=== PATIENT | male | born 1980 | race African-American/Black ===

== ENCOUNTER 2018-12-20 09:15 | Inpatient (IN) | payer MEDICAID, OTHER ==
[~2018-12-20] VITALS: Ht 190.5 cm; Wt 78.0 kg
[2018-12-20] MEDS ORDERED: KETOROLAC 30MG/ML VIAL IV ONE (09:45)
[2018-12-20] MEDS ORDERED: SODIUM CHLORIDE 0.9% 1000ML BAG (SEPSIS BOLUS) IV ONE (09:45)
[2018-12-20] MEDS ORDERED: PIPERACILLIN/TAZ 3.375G PREMIX 50 ML IV ONE (10:00)
[2018-12-20] MEDS ORDERED: VANCOMYCIN 1 G PREMIX 200 ML IV ONE (10:00)
[2018-12-20 10:15] LABS: HEMATOCRIT. 44.2 % (42.0-52.0); HEMOGLOBIN. 14.8 g/dL (14.0-18.0); MEAN CORPUSCULAR VOLUME 89.6 fL (80.0-94.0); MEAN PLATELET VOLUME 8.3 fl (7.4-10.4); PLATELET 303 x1000/uL (130-400); RED BLOOD CELL COUNT 4.94 mill/uL (4.7-6.1); RED CELL DISTRIBUTION WIDTH 14.3 % (11.6-14.6)
[2018-12-20 10:22] LABS: PROTHROMBIN TIME 10.7 sec (9.6-11.0)
[2018-12-20 10:34] LABS: CHLORIDE 99 mEq/L (98-107)
[2018-12-20 10:47] LABS: PLATELET ESTIMATE NORMAL
[2018-12-20] MEDS ORDERED: ACETAMINOPHEN 325MG TABLET PO ONE (13:00)
[2018-12-20] MEDS ORDERED: MORPHINE SULFATE 4 MG/ML CPJ (NOT FOR IM USE) IV ONE (13:00)
[2018-12-20 13:23] LABS: CLARITY URINE CLOUDY (CLEAR); COLOR URINE DARK YELLOW (YELLOW); KETONES URINE TRACE (NEGATIVE); LEUKOCYTE ESTERASE URINE 1+ (NEGATIVE); NITRITE URINE NEGATIVE (NEGATIVE); OCCULT BLOOD URINE 2+ (NEGATIVE); PROTEIN URINE 1+ (NEGATIVE); SPECIFIC GRAVITY URINE 1.018 (1.005-1.030)
[2018-12-20] MEDS ORDERED: CLONIDINE 0.1MG TABLET PO PRN (13:30)
[2018-12-20] MEDS ORDERED: PIPERACILLIN/TAZ 3.375G PREMIX 50 ML IV SCH (13:30)
[2018-12-20] MEDS ORDERED: IPRATROPIUM/ALBUTEROL 0.5-3(2.5)MG/3ML NEB NEB PRN (13:30)
[2018-12-20] MEDS ORDERED: MAGNESIUM/ALUMINUM HYDROXIDE/SIMETHICONE 30ML UDC PO PRN (13:30)
[2018-12-20] MEDS ORDERED: ACETAMINOPHEN 325MG TABLET PO PRN ×2 (13:30→18:30)
[2018-12-20] MEDS ORDERED: ONDANSETRON HCL 4MG/2ML INJ IV PRN ×2 (13:30→18:30)
[2018-12-20] MEDS ORDERED: NITROGLYCERIN 0.4MG TABLET SL SL PRN (13:30)
[2018-12-20] MEDS ORDERED: KETOROLAC 15MG/ML VIAL IV PRN (13:30)
[2018-12-20] MEDS ORDERED: TRAMADOL 50MG TABLET PO PRN (13:30)
[2018-12-20 14:31] LABS: *AMPHETAMINES SCREEN URINE PRESUMTIVE POSITIVE (NEGATIVE); *BARBITURATES SCREEN URINE NEGATIVE (NEGATIVE); *BENZODIAZEPINES SCREEN URINE NEGATIVE (NEGATIVE); *COCAINE SCREEN URINE NEGATIVE (NEGATIVE); CANNABINOID URINE SCREEN PRESUMTIVE POSITIVE (NEGATIVE); METHADONE URINE SCREEN NEGATIVE (NEGATIVE); OPIATES URINE SCREEN NEGATIVE (NEGATIVE); PHENCYCLIDINE URINE SCREEN NEGATIVE (NEGATIVE)
[2018-12-20] MEDS ORDERED: ALBUL MT (15:52)
[2018-12-20 15:54] VITALS: BP 95/61
[2018-12-20 16:00] VITALS: BP 95/61
[2018-12-20] MEDS ORDERED: SODIUM CHLORIDE 0.9% 1,000 ML IV SCH (16:30)
[2018-12-20] MEDS: ENOXAPARIN 40MG/0.4ML SYR SUBCUT SCH (17:00)
[2018-12-20] MEDS ORDERED: BUPIVACAINE HCL 0.5% (5MG/ML) 50ML ONE (17:45)
[2018-12-20] MEDS ORDERED: BACITRACIN 50,000 UNITS/VIAL ONE (17:45)
[2018-12-20] MEDS: PIPERACILLIN/TAZOBACTAM 2.25 G in DEXTROSE 5% WATER 50 ML IV SCH (18:00)
[2018-12-20] MEDS ORDERED: FENTANYL CITRATE/PF 50MCG/ML 2ML VIAL ONE (18:12)
[2018-12-20] MEDS ORDERED: MIDAZOLAM HCL 2 MG/2 ML VIAL ONE (18:12)
[2018-12-20] MEDS ORDERED: ROCURONIUM BROMIDE 10MG/ML VIAL 5ML IV ONE (18:12)
[2018-12-20] MEDS ORDERED: ETOMIDATE 2MG/ML 10ML VIAL IV ONE (18:13)
[2018-12-20] MEDS ORDERED: LIDOCAINE HCL 1% 20ML VIAL (Pyxis) INJ ONE (18:13)
[2018-12-20] MEDS ORDERED: SODIUM CHLORIDE 0.9% 10ML VIAL ONE ×2 (18:13→18:24)
[2018-12-20] MEDS ORDERED: EPHEDRINE SULFATE 50MG/ML VIAL ONE (18:24)
[2018-12-20] MEDS ORDERED: PHENYLEPHRINE HCL 10 MG/ML 1ML (IV VIAL) IV ONE (18:26)
[2018-12-20] MEDS ORDERED: MORPHINE SULFATE 4 MG/ML CPJ (NOT FOR IM USE) IV PRN (18:30)
[2018-12-20] MEDS ORDERED: DEXAMETHASONE 4MG/ML 1ML VIAL ONE (19:05)
[2018-12-20] MEDS ORDERED: ONDANSETRON HCL 4MG/2ML INJ ONE (19:17)
[2018-12-20] MEDS ORDERED: NEOSTIGMINE METHYLSULFATE 1MG/ML 10 ML VIAL ONE (19:22)
[2018-12-20] MEDS ORDERED: GLYCOPYRROLATE 0.2 MG/ML 2ML VIAL ONE (19:23)
[2018-12-20] MEDS ORDERED: FLUMAZENIL 0.1 MG/ML 5ML VIAL IV ONE (19:29)
[2018-12-20] MEDS: HYDROMORPHONE HCL/PF 2MG/ML CPJ IV PRN ×2 (20:30→20:44)
[2018-12-20 21:15] VITALS: BP 87/56
[2018-12-20] MEDS: DEXT 5%/0.45% NACL KCL 20MEQ/L 1,000 ML IV SCH (21:54)
[2018-12-20] MEDS: VANCOMYCIN 1 G PREMIX 200 ML IV SCH (21:55)
[2018-12-20] MEDS: SODIUM CHLORIDE 0.9% INJ 3ML FLUSH IVF SCH (21:55)
[2018-12-20] MEDS: ASCORBIC ACID 500 MG TABLET PO SCH (21:55)
[2018-12-20 23:52] VITALS: BP 86/47
[2018-12-21] MEDS: PIPERACILLIN/TAZOBACTAM 2.25 G in DEXTROSE 5% WATER 50 ML IV SCH ×4 (00:27→17:44)
[2018-12-21 04:00] VITALS: BP 90/56
[2018-12-21] MEDS: DEXT 5%/0.45% NACL KCL 20MEQ/L 1,000 ML IV SCH ×2 (05:46→17:45)
[2018-12-21] MEDS: SODIUM CHLORIDE 0.9% INJ 3ML FLUSH IVF SCH ×3 (05:47→20:26)
[2018-12-21 08:00] VITALS: BP 93/49
[2018-12-21] MEDS: ASCORBIC ACID 500 MG TABLET PO SCH ×2 (08:57→20:26)
[2018-12-21] MEDS: VANCOMYCIN 1 G PREMIX 200 ML IV SCH ×2 (08:57→20:26)
[2018-12-21] MEDS: ZINC SULFATE 220 MG ( 50 ) CAPSULE PO SCH (08:58)
[2018-12-21 12:00] VITALS: BP 106/67
[2018-12-21 16:00] VITALS: BP 116/69
[2018-12-21] MEDS: ENOXAPARIN 40MG/0.4ML SYR SUBCUT SCH (17:44)
[2018-12-21] MEDS: DOCUSATE SODIUM 100MG CAPSULE PO PRN (18:00)
[2018-12-21] MEDS: HYDROCODONE/ACETAMINOPHEN 5/325MG TABLET PO PRN (18:00)
[2018-12-21 20:50] VITALS: BP 104/72
[2018-12-22] VITALS: BP 110/71
[2018-12-22] MEDS: PIPERACILLIN/TAZOBACTAM 2.25 G in DEXTROSE 5% WATER 50 ML IV SCH ×4 (01:00→17:02)
[2018-12-22 04:00] VITALS: BP 99/63
[2018-12-22] MEDS: HYDROCODONE/ACETAMINOPHEN 5/325MG TABLET PO PRN ×2 (05:09→17:04)
[2018-12-22] MEDS: SODIUM CHLORIDE 0.9% INJ 3ML FLUSH IVF SCH ×3 (05:15→21:33)
[2018-12-22] MEDS: DEXT 5%/0.45% NACL KCL 20MEQ/L 1,000 ML IV SCH ×3 (05:51→21:32)
[2018-12-22 07:20] LABS: HEMATOCRIT. 32.3 % (42.0-52.0); HEMOGLOBIN. 10.9 g/dL (14.0-18.0); MEAN CORPUSCULAR HEMOGLOBIN 29.6 pg (28.0-32.0); MEAN CORPUSCULAR VOLUME 87.7 fL (80.0-94.0); MEAN PLATELET VOLUME 8.5 fl (7.4-10.4); PLATELET 265 x1000/uL (130-400); RED BLOOD CELL COUNT 3.69 mill/uL (4.7-6.1); RED CELL DISTRIBUTION WIDTH 14.5 % (11.6-14.6)
[2018-12-22 07:51] LABS: CHLORIDE 110 mEq/L (98-107)
[2018-12-22 08:00] VITALS: BP 108/65
[2018-12-22] MEDS: ASCORBIC ACID 500 MG TABLET PO SCH ×2 (09:23→21:32)
[2018-12-22] MEDS: ZINC SULFATE 220 MG ( 50 ) CAPSULE PO SCH (09:24)
[2018-12-22] MEDS: VANCOMYCIN 1 G PREMIX 200 ML IV SCH ×2 (09:24→17:02)
[2018-12-22 12:00] VITALS: BP 108/67
[2018-12-22 13:22] LABS: PLATELET ESTIMATE NORMAL
[2018-12-22] MEDS: ENOXAPARIN 40MG/0.4ML SYR SUBCUT SCH (17:02)
[2018-12-22 20:00] VITALS: BP 102/51
[2018-12-22] MEDS: ZOLPIDEM TARTRATE 5MG TABLET PO PRN (21:32)
[2018-12-23] VITALS: BP 112/77
[2018-12-23] MEDS: PIPERACILLIN/TAZOBACTAM 2.25 G in DEXTROSE 5% WATER 50 ML IV SCH ×5 (00:16→23:36)
[2018-12-23] MEDS: VANCOMYCIN 1 G PREMIX 200 ML IV SCH ×3 (01:17→17:50)
[2018-12-23 04:00] VITALS: BP 124/67
[2018-12-23] MEDS: SODIUM CHLORIDE 0.9% INJ 3ML FLUSH IVF SCH ×3 (05:35→21:11)
[2018-12-23] MEDS: MORPHINE SULFATE 2 MG/ML CPJ (NOT FOR IM USE) IV PRN ×3 (05:50→23:24)
[2018-12-23 08:24] VITALS: BP 113/62
[2018-12-23] MEDS: ASCORBIC ACID 500 MG TABLET PO SCH ×2 (09:00→21:10)
[2018-12-23] MEDS: ZINC SULFATE 220 MG ( 50 ) CAPSULE PO SCH (09:00)
[2018-12-23] MEDS: DEXT 5%/0.45% NACL KCL 20MEQ/L 1,000 ML IV SCH ×2 (09:01→17:51)
[2018-12-23] MEDS: HYDROCODONE/ACETAMINOPHEN 5/325MG TABLET PO PRN ×2 (09:20→19:03)
[2018-12-23 12:21] VITALS: BP 134/68
[2018-12-23 16:52] VITALS: BP 114/70
[2018-12-23] MEDS: ENOXAPARIN 40MG/0.4ML SYR SUBCUT SCH (17:50)
[2018-12-23 20:00] VITALS: BP 120/68
[2018-12-23] MEDS: ZOLPIDEM TARTRATE 5MG TABLET PO PRN (21:10)
[2018-12-24] VITALS: BP 118/69
[2018-12-24] MEDS: VANCOMYCIN 1 G PREMIX 200 ML IV SCH ×2 (01:29→09:00)
[2018-12-24 04:00] VITALS: BP 110/66
[2018-12-24] MEDS: DEXT 5%/0.45% NACL KCL 20MEQ/L 1,000 ML IV SCH ×3 (04:10→23:55)
[2018-12-24] MEDS: PIPERACILLIN/TAZOBACTAM 2.25 G in DEXTROSE 5% WATER 50 ML IV SCH ×4 (06:20→23:56)
[2018-12-24] MEDS: SODIUM CHLORIDE 0.9% INJ 3ML FLUSH IVF SCH ×3 (06:20→21:42)
[2018-12-24] MEDS: DOCUSATE SODIUM 100MG CAPSULE PO PRN ×2 (06:21→18:36)
[2018-12-24 08:00] VITALS: BP 116/63
[2018-12-24] MEDS: ASCORBIC ACID 500 MG TABLET PO SCH ×2 (09:00→21:42)
[2018-12-24] MEDS: ZINC SULFATE 220 MG ( 50 ) CAPSULE PO SCH (09:01)
[2018-12-24 12:00] VITALS: BP 112/60
[2018-12-24] MEDS ORDERED: TETANUS, DIPHTHERIA, PERTUSSIS VAC/PF 0.5ML (>7YR OLD) IM ONE (15:30)
[2018-12-24 16:00] VITALS: BP 115/69
[2018-12-24] MEDS ORDERED: CLINDAMYCIN 600 MG in DEXTROSE 5% WATER 50 ML IV SCH (16:30)
[2018-12-24] MEDS: ENOXAPARIN 40MG/0.4ML SYR SUBCUT SCH (17:07)
[2018-12-24] MEDS: CLINDAMYCIN 600MG PREMIX 50 ML IV SCH (18:37)
[2018-12-24 20:30] VITALS: BP 102/57
[2018-12-24] MEDS: ZOLPIDEM TARTRATE 5MG TABLET PO PRN (21:42)
[2018-12-25] VITALS (7 sets, daily range): BP systolic 102–126; BP diastolic 60–75
[2018-12-25] MEDS: CLINDAMYCIN 600MG PREMIX 50 ML IV SCH ×3 (02:07→19:10)
[2018-12-25] MEDS: PIPERACILLIN/TAZOBACTAM 2.25 G in DEXTROSE 5% WATER 50 ML IV SCH ×3 (05:30→19:10)
[2018-12-25] MEDS: SODIUM CHLORIDE 0.9% INJ 3ML FLUSH IVF SCH ×3 (05:30→21:17)
[2018-12-25 07:22] LABS: HEMATOCRIT. 35.9 % (42.0-52.0); HEMOGLOBIN. 12.1 g/dL (14.0-18.0); MEAN CORPUSCULAR HEMOGLOBIN 29.7 pg (28.0-32.0); MEAN CORPUSCULAR VOLUME 87.8 fL (80.0-94.0); MEAN PLATELET VOLUME 7.5 fl (7.4-10.4); PLATELET 469 x1000/uL (130-400); RED BLOOD CELL COUNT 4.09 mill/uL (4.7-6.1); RED CELL DISTRIBUTION WIDTH 14.4 % (11.6-14.6)
[2018-12-25 07:39] LABS: CHLORIDE 105 mEq/L (98-107)
[2018-12-25 07:54] LABS: CREATINE KINASE 23 IU/L (39-308)
[2018-12-25] MEDS: ZINC SULFATE 220 MG ( 50 ) CAPSULE PO SCH (09:54)
[2018-12-25] MEDS: ASCORBIC ACID 500 MG TABLET PO SCH ×2 (09:55→21:16)
[2018-12-25] MEDS: DEXT 5%/0.45% NACL KCL 20MEQ/L 1,000 ML IV SCH ×2 (09:56→21:17)
[2018-12-25 10:04] LABS: PLATELET ESTIMATE INCREASED
[2018-12-25] MEDS: MORPHINE SULFATE 2 MG/ML CPJ (NOT FOR IM USE) IV PRN (14:36)
[2018-12-25] MEDS: ENOXAPARIN 40MG/0.4ML SYR SUBCUT SCH (19:10)
[2018-12-26] VITALS: BP 107/65
[2018-12-26] MEDS: PIPERACILLIN/TAZOBACTAM 2.25 G in DEXTROSE 5% WATER 50 ML IV SCH ×4 (01:29→22:08)
[2018-12-26] MEDS: CLINDAMYCIN 600MG PREMIX 50 ML IV SCH ×3 (03:02→22:08)
[2018-12-26 04:00] VITALS: BP 111/54
[2018-12-26] MEDS: SODIUM CHLORIDE 0.9% INJ 3ML FLUSH IVF SCH ×3 (05:47→22:00)
[2018-12-26] MEDS: DEXT 5%/0.45% NACL KCL 20MEQ/L 1,000 ML IV SCH ×2 (05:47→18:39)
[2018-12-26 07:57] LABS: HEMATOCRIT. 35.9 % (42.0-52.0); MEAN CORPUSCULAR HEMOGLOBIN 29.3 pg (28.0-32.0); MEAN PLATELET VOLUME 7.5 fl (7.4-10.4); PLATELET 513 x1000/uL (130-400); RED BLOOD CELL COUNT 4.08 mill/uL (4.7-6.1); RED CELL DISTRIBUTION WIDTH 14.6 % (11.6-14.6)
[2018-12-26 08:00] VITALS: BP 103/59
[2018-12-26] MEDS: ZINC SULFATE 220 MG ( 50 ) CAPSULE PO SCH (09:28)
[2018-12-26] MEDS: ASCORBIC ACID 500 MG TABLET PO SCH ×2 (09:28→22:07)
[2018-12-26 11:30] LABS: PLATELET ESTIMATE INCREASED
[2018-12-26 16:00] VITALS: BP 103/38
[2018-12-26] MEDS: ENOXAPARIN 40MG/0.4ML SYR SUBCUT SCH (18:40)
[2018-12-26 20:00] VITALS: BP 108/50
[2018-12-27] VITALS: BP 109/68
[2018-12-27 04:00] VITALS: BP 98/52
[2018-12-27] MEDS: CLINDAMYCIN 600MG PREMIX 50 ML IV SCH ×2 (06:00→10:17)
[2018-12-27] MEDS: PIPERACILLIN/TAZOBACTAM 2.25 G in DEXTROSE 5% WATER 50 ML IV SCH ×4 (06:00→11:43)
[2018-12-27 07:26] LABS: HEMATOCRIT. 37.1 % (42.0-52.0); HEMOGLOBIN. 12.5 g/dL (14.0-18.0); MEAN CORPUSCULAR HEMOGLOBIN 29.8 pg (28.0-32.0); MEAN PLATELET VOLUME 7.1 fl (7.4-10.4); PLATELET 643 x1000/uL (130-400); RED BLOOD CELL COUNT 4.21 mill/uL (4.7-6.1); RED CELL DISTRIBUTION WIDTH 14.7 % (11.6-14.6)
[2018-12-27 08:00] VITALS: BP 94/55
[2018-12-27] MEDS: ASCORBIC ACID 500 MG TABLET PO SCH ×2 (08:33→21:17)
[2018-12-27] MEDS: ZINC SULFATE 220 MG ( 50 ) CAPSULE PO SCH (08:33)
[2018-12-27 10:07] LABS: PLATELET ESTIMATE INCREASED
[2018-12-27] MEDS: DEXT 5%/0.45% NACL KCL 20MEQ/L 1,000 ML IV SCH ×2 (10:17→23:26)
[2018-12-27 12:00] VITALS: BP 109/67
[2018-12-27] MEDS ORDERED: PIPERACILLIN/TAZOBACTAM 3.375 G in DEXT 5% WATER 100 ML IV SCH (15:00)
[2018-12-27 16:00] VITALS: BP 105/62
[2018-12-27] MEDS: ENOXAPARIN 40MG/0.4ML SYR SUBCUT SCH (16:38)
[2018-12-27] MEDS: PIPERACILLIN/TAZOBACTAM 3.375 G in DEXT 5% WATER 100 ML IV SCH ×2 (16:38→23:51)
[2018-12-27 20:00] VITALS: BP 117/58
[2018-12-28] VITALS: BP 118/60
[2018-12-28 04:00] VITALS: BP 116/57
[2018-12-28] MEDS: PIPERACILLIN/TAZOBACTAM 3.375 G in DEXT 5% WATER 100 ML IV SCH ×3 (06:37→17:18)
[2018-12-28] MEDS: DEXT 5%/0.45% NACL KCL 20MEQ/L 1,000 ML IV SCH ×2 (07:30→16:32)
[2018-12-28 08:00] VITALS: BP 103/60
[2018-12-28] MEDS: ASCORBIC ACID 500 MG TABLET PO SCH ×2 (08:50→21:19)
[2018-12-28] MEDS: ZINC SULFATE 220 MG ( 50 ) CAPSULE PO SCH (08:50)
[2018-12-28 12:00] VITALS: BP 107/65
[2018-12-28] MEDS: SODIUM CHLORIDE 0.9% INJ 3ML FLUSH IVF SCH (14:31)
[2018-12-28 16:00] VITALS: BP 110/70
[2018-12-28] MEDS: ENOXAPARIN 40MG/0.4ML SYR SUBCUT SCH (17:18)
[2018-12-28 20:00] VITALS: BP 99/62
[2018-12-29] VITALS (7 sets, daily range): BP systolic 91–112; BP diastolic 51–75
[2018-12-29] MEDS: PIPERACILLIN/TAZOBACTAM 3.375 G in DEXT 5% WATER 100 ML IV SCH ×4 (00:32→17:23)
[2018-12-29] MEDS: SODIUM CHLORIDE 0.9% INJ 3ML FLUSH IVF SCH ×3 (00:32→21:02)
[2018-12-29] MEDS: DEXT 5%/0.45% NACL KCL 20MEQ/L 1,000 ML IV SCH ×3 (05:54→23:30)
[2018-12-29 06:33] LABS: HEMATOCRIT. 38.4 % (42.0-52.0); HEMOGLOBIN. 13.1 g/dL (14.0-18.0); MEAN CORPUSCULAR HEMOGLOBIN 30.2 pg (28.0-32.0); MEAN CORPUSCULAR VOLUME 88.4 fL (80.0-94.0); PLATELET 809 x1000/uL (130-400); RED BLOOD CELL COUNT 4.34 mill/uL (4.7-6.1); RED CELL DISTRIBUTION WIDTH 14.6 % (11.6-14.6)
[2018-12-29 06:46] LABS: CHLORIDE 106 mEq/L (98-107)
[2018-12-29] MEDS: ZINC SULFATE 220 MG ( 50 ) CAPSULE PO SCH (08:29)
[2018-12-29] MEDS: ASCORBIC ACID 500 MG TABLET PO SCH ×2 (08:29→20:50)
[2018-12-29 11:41] LABS: PLATELET ESTIMATE INCREASED
[2018-12-29] MEDS: ENOXAPARIN 40MG/0.4ML SYR SUBCUT SCH (17:22)
[2018-12-30] VITALS: BP 112/65
[2018-12-30] MEDS: PIPERACILLIN/TAZOBACTAM 3.375 G in DEXT 5% WATER 100 ML IV SCH ×4 (00:12→17:02)
[2018-12-30 04:00] VITALS: BP 101/53
[2018-12-30] MEDS: SODIUM CHLORIDE 0.9% INJ 3ML FLUSH IVF SCH ×3 (05:10→20:37)
[2018-12-30 08:00] VITALS: BP 112/42
[2018-12-30] MEDS: ZINC SULFATE 220 MG ( 50 ) CAPSULE PO SCH (08:51)
[2018-12-30] MEDS: DEXT 5%/0.45% NACL KCL 20MEQ/L 1,000 ML IV SCH ×2 (08:51→20:36)
[2018-12-30] MEDS: ASCORBIC ACID 500 MG TABLET PO SCH ×2 (08:51→20:36)
[2018-12-30 12:00] VITALS: BP 110/59
[2018-12-30 15:59] VITALS: BP 113/67
[2018-12-30] MEDS: ENOXAPARIN 40MG/0.4ML SYR SUBCUT SCH (17:02)
[2018-12-30 20:00] VITALS: BP 122/58
[2018-12-31] VITALS: BP 115/55
[2018-12-31] MEDS: PIPERACILLIN/TAZOBACTAM 3.375 G in DEXT 5% WATER 100 ML IV SCH ×5 (01:05→22:55)
[2018-12-31 04:00] VITALS: BP 100/56
[2018-12-31] MEDS: DEXT 5%/0.45% NACL KCL 20MEQ/L 1,000 ML IV SCH ×3 (06:34→22:59)
[2018-12-31] MEDS: SODIUM CHLORIDE 0.9% INJ 3ML FLUSH IVF SCH ×3 (06:35→22:52)
[2018-12-31 07:09] LABS: BASOPHILS % 1.1 % (0.0-2.0); EOSINOPHILS % 1.4 % (0.0-5.0); HEMATOCRIT. 37.6 % (42.0-52.0); HEMOGLOBIN. 12.8 g/dL (14.0-18.0); LYMPHOCYTES % 16.6 % (20.0-50.0); MEAN CORPUSCULAR HEMOGLOBIN 30.2 pg (28.0-32.0); MEAN CORPUSCULAR VOLUME 88.9 fL (80.0-94.0); MEAN PLATELET VOLUME 6.9 fl (7.4-10.4); MONOCYTES % 6.3 % (2.0-8.0); NEUTROPHILS % 74.6 % (40.0-76.0); PLATELET 864 x1000/uL (130-400); RED BLOOD CELL COUNT 4.23 mill/uL (4.7-6.1); RED CELL DISTRIBUTION WIDTH 15.1 % (11.6-14.6)
[2018-12-31 08:00] VITALS: BP 86/47
[2018-12-31] MEDS: ZINC SULFATE 220 MG ( 50 ) CAPSULE PO SCH (08:37)
[2018-12-31] MEDS: ASCORBIC ACID 500 MG TABLET PO SCH ×2 (08:37→22:52)
[2018-12-31 12:00] VITALS: BP 102/48
[2018-12-31 16:00] VITALS: BP 113/69
[2018-12-31] MEDS: ENOXAPARIN 40MG/0.4ML SYR SUBCUT SCH (16:01)
[2018-12-31 20:00] VITALS: BP 105/60
[2019-01-01] VITALS: BP 113/52
[2019-01-01 04:00] VITALS: BP 106/53
[2019-01-01] MEDS: SODIUM CHLORIDE 0.9% INJ 3ML FLUSH IVF SCH ×3 (06:13→21:41)
[2019-01-01] MEDS: PIPERACILLIN/TAZOBACTAM 3.375 G in DEXT 5% WATER 100 ML IV SCH ×3 (06:13→17:55)
[2019-01-01 08:00] VITALS: BP 94/42
[2019-01-01] MEDS: ASCORBIC ACID 500 MG TABLET PO SCH ×2 (09:28→21:41)
[2019-01-01] MEDS: ZINC SULFATE 220 MG ( 50 ) CAPSULE PO SCH (09:28)
[2019-01-01 12:00] VITALS: BP 111/70
[2019-01-01] MEDS: MORPHINE SULFATE 2 MG/ML CPJ (NOT FOR IM USE) IV PRN (14:59)
[2019-01-01 16:00] VITALS: BP 118/73
[2019-01-01] MEDS: ENOXAPARIN 40MG/0.4ML SYR SUBCUT SCH (17:56)
[2019-01-01] MEDS: DEXT 5%/0.45% NACL KCL 20MEQ/L 1,000 ML IV SCH ×2 (17:56→21:41)
[2019-01-01 20:00] VITALS: BP 106/62
[2019-01-02] VITALS: BP_SYST 95; BP_SYST 99; BP_DIAS 51; BP_DIAS 53
[2019-01-02] MEDS: PIPERACILLIN/TAZOBACTAM 3.375 G in DEXT 5% WATER 100 ML IV SCH ×4 (00:59→17:39)
[2019-01-02 04:00] VITALS: BP 99/53
[2019-01-02] MEDS: SODIUM CHLORIDE 0.9% INJ 3ML FLUSH IVF SCH ×2 (06:40→13:28)
[2019-01-02 08:00] VITALS: BP 108/56
[2019-01-02] MEDS: ZINC SULFATE 220 MG ( 50 ) CAPSULE PO SCH (08:51)
[2019-01-02] MEDS: ASCORBIC ACID 500 MG TABLET PO SCH ×2 (08:51→20:38)
[2019-01-02] MEDS: DEXT 5%/0.45% NACL KCL 20MEQ/L 1,000 ML IV SCH ×2 (08:53→17:38)
[2019-01-02 12:00] VITALS: BP 103/58
[2019-01-02 16:00] VITALS: BP 119/68
[2019-01-02] MEDS: ENOXAPARIN 40MG/0.4ML SYR SUBCUT SCH (17:37)
[2019-01-02 20:00] VITALS: BP 103/55
[2019-01-03] VITALS: BP 103/58
[2019-01-03] MEDS: PIPERACILLIN/TAZOBACTAM 3.375 G in DEXT 5% WATER 100 ML IV SCH ×4 (00:05→17:44)
[2019-01-03 04:00] VITALS: BP 101/55
[2019-01-03 08:00] VITALS: BP 105/61
[2019-01-03] MEDS: ASCORBIC ACID 500 MG TABLET PO SCH ×2 (08:18→21:00)
[2019-01-03] MEDS: FERROUS SULFATE 325MG TABLET PO SCH (08:19)
[2019-01-03] MEDS: ZINC SULFATE 220 MG ( 50 ) CAPSULE PO SCH (08:21)
[2019-01-03] MEDS: DEXT 5%/0.45% NACL KCL 20MEQ/L 1,000 ML IV SCH (11:54)
[2019-01-03 12:00] VITALS: BP 129/71
[2019-01-03 16:00] VITALS: BP 122/79
[2019-01-03] MEDS: ENOXAPARIN 40MG/0.4ML SYR SUBCUT SCH (16:41)
[2019-01-03 20:00] VITALS: BP 95/72
[2019-01-03] MEDS: SODIUM CHLORIDE 0.9% INJ 3ML FLUSH IVF SCH (21:00)
[2019-01-04] VITALS: BP 106/57
[2019-01-04] MEDS: DIPHENHYDRAMINE 50MG CAPSULE PO PRN ×2 (00:19→23:31)
[2019-01-04 04:00] VITALS: BP 99/56
[2019-01-04] MEDS: SODIUM CHLORIDE 0.9% INJ 3ML FLUSH IVF SCH ×2 (05:38→14:37)
[2019-01-04 08:00] VITALS: BP 108/65
[2019-01-04] MEDS: ZINC SULFATE 220 MG ( 50 ) CAPSULE PO SCH (08:20)
[2019-01-04] MEDS: ASCORBIC ACID 500 MG TABLET PO SCH ×2 (08:20→20:12)
[2019-01-04] MEDS: FERROUS SULFATE 325MG TABLET PO SCH (08:20)
[2019-01-04] MEDS: DEXT 5%/0.45% NACL KCL 20MEQ/L 1,000 ML IV SCH ×2 (09:54→16:52)
[2019-01-04 16:00] VITALS: BP 104/66
[2019-01-04] MEDS: ENOXAPARIN 40MG/0.4ML SYR SUBCUT SCH (16:25)
[2019-01-04 20:00] VITALS: BP 113/75
[2019-01-05] VITALS: BP_SYST 104; BP_SYST 154; BP_DIAS 55; BP_DIAS 90
[2019-01-05 04:00] VITALS: BP 95/68
[2019-01-05] MEDS: SODIUM CHLORIDE 0.9% INJ 3ML FLUSH IVF SCH ×3 (06:14→21:05)
[2019-01-05] MEDS: DEXT 5%/0.45% NACL KCL 20MEQ/L 1,000 ML IV SCH ×2 (06:15→17:13)
[2019-01-05 08:00] VITALS: BP 116/68
[2019-01-05] MEDS: ASCORBIC ACID 500 MG TABLET PO SCH ×2 (08:47→20:51)
[2019-01-05] MEDS: FERROUS SULFATE 325MG TABLET PO SCH (08:47)
[2019-01-05 12:00] VITALS: BP 105/69
[2019-01-05] MEDS: MORPHINE SULFATE 2 MG/ML CPJ (NOT FOR IM USE) IV PRN (13:24)
[2019-01-05 16:00] VITALS: BP_SYST 115; BP_SYST 128; BP_DIAS 71; BP_DIAS 75
[2019-01-05] MEDS: ENOXAPARIN 40MG/0.4ML SYR SUBCUT SCH (17:13)
[2019-01-05 20:00] VITALS: BP 105/66
[2019-01-05] MEDS: CLOTRIMAZOLE 1% CREAM 30GM TOP SCH (20:51)
[2019-01-06] VITALS: BP 109/69
[2019-01-06] MEDS: DEXT 5%/0.45% NACL KCL 20MEQ/L 1,000 ML IV SCH ×3 (01:54→22:01)
[2019-01-06 04:00] VITALS: BP 92/59
[2019-01-06] MEDS: SODIUM CHLORIDE 0.9% INJ 3ML FLUSH IVF SCH ×3 (06:07→22:02)
[2019-01-06 08:00] VITALS: BP 105/63
[2019-01-06] MEDS: CLOTRIMAZOLE 1% CREAM 30GM TOP SCH ×2 (09:00→10:00)
[2019-01-06] MEDS: FERROUS SULFATE 325MG TABLET PO SCH (09:05)
[2019-01-06] MEDS: ASCORBIC ACID 500 MG TABLET PO SCH ×2 (09:05→22:00)
[2019-01-06 12:00] VITALS: BP 112/71
[2019-01-06 16:00] VITALS: BP 111/75
[2019-01-06] MEDS: ENOXAPARIN 40MG/0.4ML SYR SUBCUT SCH (17:16)
[2019-01-06 20:00] VITALS: BP 124/88
[2019-01-06] MEDS: DIPHENHYDRAMINE 50MG CAPSULE PO PRN ×2 (22:07)
[2019-01-07] VITALS: BP 103/57
[2019-01-07 04:00] VITALS: BP 101/63
[2019-01-07] MEDS: DEXT 5%/0.45% NACL KCL 20MEQ/L 1,000 ML IV SCH (07:30)
[2019-01-07 08:00] VITALS: BP 107/55
[2019-01-07] MEDS: FERROUS SULFATE 325MG TABLET PO SCH (08:43)
[2019-01-07] MEDS: ASCORBIC ACID 500 MG TABLET PO SCH (08:43)
[2019-01-07] MEDS: DOCUSATE SODIUM 100MG CAPSULE PO PRN (08:43)
[2019-01-07] MEDS: CLOTRIMAZOLE 1% CREAM 30GM TOP SCH (09:00)
[2019-01-07 12:00] VITALS: BP 121/70
== END 2019-01-07 13:49 | disposition home or self-care (01) | DRG 720 ==
LOC: ER 09:15 → 6WST 13:01 → EDBEDREQSVC 13:04 → EDBEDREQ 13:04 → EDBEDREQTM 13:04 → ENRESERV 14:35 → 6EST 12-26 13:58
PROVIDERS: ADMIT Internal Medicine; ATTEND Internal Medicine
PROC: 0JBM0ZZ Excision of Left Upper Leg Subcutaneous Tissue and Fascia, Open Approach (ICD-10-PCS; principal; 2018-12-20)
DX: A41.9 Sepsis, unspecified organism (principal); N17.0 Acute kidney failure with tubular necrosis; M72.6 Necrotizing fasciitis; E87.2 Acidosis; K80.70 Calculus of gallbladder and bile duct without cholecystitis without obstruction; E44.1 Mild protein-calorie malnutrition; L03.116 Cellulitis of left lower limb; F12.90 Cannabis use, unspecified, uncomplicated; F17.210 Nicotine dependence, cigarettes, uncomplicated; J45.909 Unspecified asthma, uncomplicated; D63.8 Anemia in other chronic diseases classified elsewhere; Z68.21 Body mass index [BMI] 21.0-21.9, adult; Z79.899 Other long term (current) drug therapy
CPT/HCPCS: 36415; 71045; 74176; 80048; 80061; 80202; 80305; 81003; 82550; 83036; 83605; 84145; 84484; 87070; 87075; 88304; 90715; 93005; 93970; 99291; C1893; J1100; J1170; J1650; J1885; J2250; J2270; J2370; J2405; J2543; J2710; J3010; J3370; J3490; J7030; J7060; Q0163